=== PATIENT | male | born 1960 | race Hispanic/Latino ===

== ENCOUNTER 2016-11-14 11:52 | Outpatient (CLI) | payer MEDICARE ==
--- NOTE | 2016-11-14 13:24 | XRay Report ---
CHEST 2 VIEWS INDICATION: Bronchitis. Muscular dystrophy.. COMPARISON: None similar at this institution. FINDINGS: PA and lateral chest radiographs demonstrate normal cardiomediastinal silhouette. Clear lungs. Possible osteopenia. CONCLUSION: No acute disease in the chest. Thank you for the opportunity to participate in this patient's care.
== END 2016-11-14 11:53 | disposition home or self-care (01) ==
LOC: SPVIMAG 11:52
DX: J40 Bronchitis, not specified as acute or chronic (principal); G71.0 Muscular dystrophy
CPT/HCPCS: 71020